=== PATIENT | female | born 1960 | race Two or more races ===

== ENCOUNTER 2020-08-27 07:34 | Day surgery (SDC) | payer MEDICARE ==
[2020-08-22 14:52] LABS: Basophils # (auto) 0 10 ^3/uL (0-0.2); Basophils % (auto) 0.6 % (0.0-2.0); Eosinophils # (auto) 0.1 10 ^3/uL (0-0.8); Eosinophils % (auto) 1.1 % (0.0-7.0); Hematocrit 39.9 % (36.0-46.0); Hemoglobin 13.1 g/dL (12.2-16.2); Lymphocytes % (auto) 53.1 % (10.0-50.0); Mean Corpuscular Hemoglobin 29.1 pg (28.0-32.0); Mean Corpuscular Hgb Conc. 32.9 g/dL (32.0-36.0); Mean Corpuscular Volume 88.3 fL (80.0-100.0); Monocytes # (auto) 0.3 10 ^3/uL (0-1.3); Monocytes % (auto) 4.8 % (0.0-12.0); Neutrophils # (auto) 2.3 10 ^3/uL (1.6-8.6); Neutrophils % (auto) 40.4 % (37.0-80.0); Nucleated Red Blood Cells % 0.2 %; Platelet Count (auto) 237 10^3/uL (140-450); Red Blood Cells 4.52 10^6/uL (4.0-5.20); Red Cell Distribution Width 14.9 % (11.8-14.3); White Blood Cell 5.6 10^3/uL (4.4-10.8)
[2020-08-22 15:21] LABS: Urine Bacteria NONE SEEN /hpf (None Seen); Urine Blood Negative /uL (Negative); Urine Mucus FEW (None Seen); Urine WBC 2 /hpf (0 - 5)
[2020-08-22 15:52] LABS: INR 0.95 (0.9-1.15); Partial Thromboplastin Time 24.7 sec (23.0-31.2)
[2020-08-22 16:03] LABS: BUN/Creatinine Ratio 22.4; Calcium 9.3 mg/dL (8.5-10.1); Potassium 4.3 mmol/L (3.5-5.1)
[2020-08-22 16:05] LABS: Bilirubin, Total 0.3 mg/dL (0.2-1.0); Total Protein 7.7 g/dL (6.4-8.2)
[~2020-08-27] VITALS: Ht 10.2 cm; Wt 103.4 kg
[~2020-08-27 07:34] MED LIST: ALPR1TAB7 PO; ATOR40TA52 PO; BUPR1TAB11 PO; HYDR-3682 PO; LEVO150T10 PO; TRAZ-181 PO; VENL-194 PO; [UNRECOGNIZED DRUG - CODE] PO
[2020-08-27] MEDS ORDERED: ceFAZolin 1GM/50ML 100 ML IV ONE (08:02)
[2020-08-27] MEDS ORDERED: LIDOCAINE 1% HCL (LOCAL ANESTH.) INJ 20ML MDV ONE (08:44)
[2020-08-27] MEDS ORDERED: fentaNYL CITRATE 100 MCG/2 ML VL IV ONE (09:27)
[2020-08-27] MEDS ORDERED: ONDANSETRON HCL 4 MG/2 ML VIAL IV ONE (09:27)
[2020-08-27] MEDS ORDERED: MIDAZOLAM HCL 1MG/1ML-2 ML VIAL IV ONE (09:27)
[2020-08-27] MEDS: BUPIVACAINE 0.5% MPF INJ 30ML SDV IJ ONE ×2 (09:47→12:10)
[2020-08-27] MEDS ORDERED: PROPOFOL 10 MG/ML 20 ML IV ONE ×3 (10:10→11:27)
[2020-08-27 13:30] VITALS: BP 114/67
== END 2020-08-27 14:00 | disposition home or self-care (01) ==
LOC: SUR 07:34
PROVIDERS: ATTEND Podiatrist
DX: M79.671 Pain in right foot (principal); M13.871 Other specified arthritis, right ankle and foot; F32.9 Major depressive disorder, single episode, unspecified; E03.9 Hypothyroidism, unspecified; F41.9 Anxiety disorder, unspecified; E66.01 Morbid (severe) obesity due to excess calories; Z20.822 Contact with and (suspected) exposure to COVID-19; Z98.890 Other specified postprocedural states; Z79.899 Other long term (current) drug therapy
CPT/HCPCS: 28730; 36415; 73620; 76001; 80053; 81001; 85025; 85610; 85730; C1713; C1769; J0690; J2001; J2250; J2405; J2704; J3010; J3490; U0003

== ENCOUNTER 2021-04-24 05:48 | Inpatient (IN) | payer MEDICARE, MEDICAID ==
[2021-04-22 14:57] LABS: Basophils # (auto) 0 10 ^3/uL (0-0.2); Basophils % (auto) 0.6 % (0.0-2.0); Eosinophils # (auto) 0.1 10 ^3/uL (0-0.8); Eosinophils % (auto) 1.1 % (0.0-7.0); Hematocrit 38.8 % (36.0-46.0); Hemoglobin 12.3 g/dL (12.2-16.2); Lymphocytes # (auto) 2.7 10 ^3/uL (0.4-5.4); Lymphocytes % (auto) 50.9 % (10.0-50.0); Mean Corpuscular Hemoglobin 27.9 pg (28.0-32.0); Mean Corpuscular Hgb Conc. 31.7 g/dL (32.0-36.0); Mean Corpuscular Volume 87.9 fL (80.0-100.0); Monocytes # (auto) 0.3 10 ^3/uL (0-1.3); Neutrophils # (auto) 2.3 10 ^3/uL (1.6-8.6); Neutrophils % (auto) 42.4 % (37.0-80.0); Red Blood Cells 4.42 10^6/uL (4.0-5.20); Red Cell Distribution Width 13.9 % (11.8-14.3); White Blood Cell 5.3 10^3/uL (4.4-10.8)
[2021-04-22 15:24] LABS: Urine Bacteria NONE SEEN /hpf (None Seen); Urine Blood Negative /uL (Negative); Urine Mucus FEW (None Seen); Urine Specific Gravity 1.019 (1.001-1.035); Urine WBC <1 /hpf (0 - 5)
[2021-04-22 15:46] LABS: Albumin 3.5 g/dL (3.4-5.0); Calcium 8.8 mg/dL (8.5-10.1); Potassium 4.4 mmol/L (3.5-5.1)
[2021-04-22 15:51] LABS: BUN/Creatinine Ratio 17.1; Bilirubin, Total 0.2 mg/dL (0.2-1.0); Total Protein 6.7 g/dL (6.4-8.2)
[2021-04-24] VITALS (10 sets, daily range): BP systolic 102–165; BP diastolic 49–98
[~2021-04-24] VITALS: Ht 162.6 cm; Wt 113.0 kg
[~2021-04-24 05:48] MED LIST changes: +ACET-1079 PO
[2021-04-24] MEDS ORDERED: VANCOMYCIN HCL 1000 MG VL ONE (07:07)
[2021-04-24] MEDS ORDERED: ceFAZolin 1GM/50ML 100 ML IV ONE (07:07)
[2021-04-24] MEDS ORDERED: MORPHINE SULF PF 2 MG/2 ML SYRG ONE ×3 (07:10→08:26)
[2021-04-24] MEDS ORDERED: CELECOXIB 100 MG CAP ONE (07:10)
[2021-04-24] MEDS ORDERED: ACETAMINOPHEN IV 100 ML IV ONE (07:10)
[2021-04-24] MEDS ORDERED: KETOROLAC TROMETH 30 MG/ML 1ML VIAL ONE (07:11)
[2021-04-24] MEDS ORDERED: PREGABALIN CAPSULE 75 MG CAP ONE (07:13)
[2021-04-24] MEDS ORDERED: fentaNYL CITRATE 100 MCG/2 ML VL ONE (07:18)
[2021-04-24] MEDS ORDERED: MIDAZOLAM HCL 2MG/2ML 2ml VIAL (1mg/ml) ONE (07:18)
[2021-04-24] MEDS ORDERED: ONDANSETRON HCL 4 MG/2 ML VIAL ONE (07:19)
[2021-04-24] MEDS ORDERED: PROPOFOL 10 MG/ML 20 ML IV ONE (07:19)
[2021-04-24] MEDS ORDERED: EPINEPHrine HCL 1 MG/1 ML AMP ONE (07:19)
[2021-04-24] MEDS ORDERED: BUPIVACAINE/DEXTROSE MPF 0.75% 2 ML AMP IT ONE (07:19)
[2021-04-24] MEDS ORDERED: DexAMETHasone SOD PHOS 10MG/1ML VIAL INJ ONE (07:19)
[2021-04-24] MEDS ORDERED: BUPIVACAINE 0.25% INJ 50ML VIAL ONE (07:23)
[2021-04-24] MEDS ORDERED: HYDROmorphone HCL 2 MG/ML VL IV PRN ×2 (07:45→09:30)
[2021-04-24] MEDS ORDERED: METOCLOPRAMIDE HCL 5MG/ml INJ 2ml VIAL IV PRN (07:45)
[2021-04-24] MEDS ORDERED: MIDAZOLAM HCL 2MG/2ML 2ml VIAL (1mg/ml) IV PRN (07:45)
[2021-04-24] MEDS ORDERED: CELECOXIB 100 MG CAP PO ONE (09:30)
[2021-04-24] MEDS ORDERED: MORPHINE SULFATE INJECTION 2 MG/ML SYRG IV PRN (09:30)
[2021-04-24] MEDS ORDERED: NITROGLYCERIN 0.4 MG SL TAB SL PRN (09:30)
[2021-04-24] MEDS ORDERED: ONDANSETRON HCL 4 MG/2 ML VIAL IV PRN (09:30)
[2021-04-24] MEDS ORDERED: ACETAMINOPHEN 325 MG TAB PO PRN (09:30)
[2021-04-24] MEDS ORDERED: HYDROcodone-ACET 5/325MG TAB PO PRN (09:30)
[2021-04-24] MEDS ORDERED: PREGABALIN CAPSULE 75 MG CAP PO ONE (09:30)
[2021-04-24] MEDS ORDERED: BISACODYL 5 MG EC TAB PO PRN (09:30)
[2021-04-24] MEDS ORDERED: ACETAMINOPHEN IV 1000 MG/100ML (10MG/ML) IV ONE (09:45)
[2021-04-24] MEDS: LACTATED RINGER'S 1,000 ML IV SCH ×2 (09:56→20:41)
[2021-04-24] MEDS ORDERED: ENOXAPARIN SOD 40 MG/0.4 ML SYRINGE SC SCH (10:00)
[2021-04-24] MEDS ORDERED: LEVOTHYROXINE SODIUM 100 MCG TAB PO ONE (10:30)
[2021-04-24] MEDS: VENLAFAXINE HCL 37.5mg XR cap PO SCH (11:00)
[2021-04-24] MEDS: buPROPion HCL 75 MG TAB PO SCH ×2 (11:00→22:54)
[2021-04-24] MEDS: oxyCODONE ER 10 MG TAB PO SCH ×2 (11:00→22:52)
[2021-04-24] MEDS: DOCUSATE SOD 100 MG CAP PO SCH ×2 (11:00→22:51)
[2021-04-24] MEDS: ATORVASTATIN 20 MG TAB PO SCH (11:00)
[2021-04-24] MEDS: ALPRAZolam 0.5 MG TAB PO SCH (11:00)
[2021-04-24] MEDS: KETOROLAC TROMETH 30 MG/ML 1ML VIAL IV SCH ×2 (12:03→18:05)
[2021-04-24] MEDS: ceFAZolin 2 GM in D5W 5% 100 ML IV SCH ×2 (15:50→22:55)
[2021-04-24] MEDS: hydrOXYzine 25 MG TAB or CAP PO SCH (22:52)
[2021-04-25] VITALS (20 sets, daily range): BP systolic 94–127; BP diastolic 48–95
[2021-04-25] MEDS: KETOROLAC TROMETH 30 MG/ML 1ML VIAL IV SCH (00:38)
[2021-04-25] MEDS: ALPRAZolam 0.5 MG TAB PO SCH ×3 (00:38→21:24)
[2021-04-25] MEDS: traZODone HCL 50 MG TAB PO SCH ×2 (00:38→21:23)
[2021-04-25] MEDS: LACTATED RINGER'S 1,000 ML IV SCH ×2 (05:54→14:55)
[2021-04-25] MEDS: HYDROcodone-ACET 5/325MG TAB PO PRN ×2 (05:54→14:56)
[2021-04-25] MEDS: ceFAZolin 2 GM in D5W 5% 100 ML IV SCH (05:54)
[2021-04-25] MEDS ORDERED: LEVOTHYROXINE SODIUM 100 MCG TAB PO SCH (07:00)
[2021-04-25 09:49] LABS: Hematocrit 32.7 % (36.0-46.0); Hemoglobin 10.7 g/dL (12.2-16.2)
[2021-04-25] MEDS: VENLAFAXINE HCL 37.5mg XR cap PO SCH (09:50)
[2021-04-25] MEDS: ATORVASTATIN 20 MG TAB PO SCH (09:50)
[2021-04-25] MEDS: DOCUSATE SOD 100 MG CAP PO SCH ×2 (09:50→21:23)
[2021-04-25] MEDS: buPROPion HCL 75 MG TAB PO SCH ×2 (09:51→21:27)
[2021-04-25] MEDS: oxyCODONE ER 10 MG TAB PO SCH ×2 (09:51→21:24)
[2021-04-25] MEDS: PANTOPRAZOLE 40 MG TAB PO SCH (09:51)
[2021-04-25] MEDS: ENOXAPARIN SOD 40 MG/0.4 ML SYRINGE SC SCH (09:52)
[2021-04-25 11:37] LABS: Potassium 4.5 mmol/L (3.5-5.1)
[2021-04-25 11:44] LABS: Albumin 2.9 g/dL (3.4-5.0); Calcium 8.3 mg/dL (8.5-10.1)
[2021-04-25 11:46] LABS: Bilirubin, Total 0.3 mg/dL (0.2-1.0); Total Protein 5.9 g/dL (6.4-8.2)
[2021-04-25] MEDS: hydrOXYzine 25 MG TAB or CAP PO SCH (21:24)
[2021-04-26] MEDS: LACTATED RINGER'S 1,000 ML IV SCH ×3 (02:45→21:35)
[2021-04-26] MEDS: HYDROmorphone HCL 2 MG/ML VL IV PRN ×4 (02:50→16:31)
[2021-04-26 05:00] VITALS: BP 100/50
[2021-04-26] MEDS: LEVOTHYROXINE SODIUM 100 MCG TAB PO SCH (07:00)
[2021-04-26] MEDS: LEVOTHYROXINE SODIUM 50 MCG TAB PO SCH (07:00)
[2021-04-26 07:48] LABS: Basophils # (auto) 0 10 ^3/uL (0-0.2); Basophils % (auto) 0.7 % (0.0-2.0); Eosinophils # (auto) 0.1 10 ^3/uL (0-0.8); Eosinophils % (auto) 0.9 % (0.0-7.0); Hematocrit 30.4 % (36.0-46.0); Lymphocytes # (auto) 2.2 10 ^3/uL (0.4-5.4); Mean Corpuscular Volume 87.8 fL (80.0-100.0); Monocytes # (auto) 0.5 10 ^3/uL (0-1.3); Monocytes % (auto) 7.7 % (0.0-12.0); Neutrophils # (auto) 3.2 10 ^3/uL (1.6-8.6); Neutrophils % (auto) 53.7 % (37.0-80.0); Nucleated Red Blood Cells % 0.1 %; Red Blood Cells 3.46 10^6/uL (4.0-5.20); Red Cell Distribution Width 13.9 % (11.8-14.3)
[2021-04-26 07:55] LABS: Calcium 7.9 mg/dL (8.5-10.1); Potassium 4.3 mmol/L (3.5-5.1)
[2021-04-26 07:58] LABS: BUN/Creatinine Ratio 21.1
[2021-04-26 08:30] VITALS: BP 126/74
[2021-04-26] MEDS: ATORVASTATIN 20 MG TAB PO SCH (09:11)
[2021-04-26] MEDS: VENLAFAXINE HCL 37.5mg XR cap PO SCH (09:11)
[2021-04-26] MEDS: DOCUSATE SOD 100 MG CAP PO SCH ×2 (09:11→21:33)
[2021-04-26] MEDS: PANTOPRAZOLE 40 MG TAB PO SCH (09:12)
[2021-04-26] MEDS: buPROPion HCL 75 MG TAB PO SCH ×2 (09:12→21:34)
[2021-04-26] MEDS: oxyCODONE ER 10 MG TAB PO SCH ×2 (09:12→21:34)
[2021-04-26] MEDS: ALPRAZolam 0.5 MG TAB PO SCH ×2 (09:12→21:35)
[2021-04-26] MEDS: ENOXAPARIN SOD 40 MG/0.4 ML SYRINGE SC SCH (09:13)
[2021-04-26 11:20] VITALS: BP 113/62
[2021-04-26 15:55] VITALS: BP 123/60
[2021-04-26] MEDS: hydrOXYzine 25 MG TAB or CAP PO SCH (21:35)
[2021-04-26] MEDS: traZODone HCL 50 MG TAB PO SCH (21:35)
[2021-04-26 22:00] VITALS: BP 144/84
[2021-04-27 05:00] VITALS: BP 124/77
[2021-04-27] MEDS: LEVOTHYROXINE SODIUM 100 MCG TAB PO SCH (06:31)
[2021-04-27] MEDS: LEVOTHYROXINE SODIUM 50 MCG TAB PO SCH (06:31)
[2021-04-27] MEDS: LACTATED RINGER'S 1,000 ML IV SCH ×3 (07:30→20:10)
[2021-04-27 08:49] LABS: Hematocrit 28.1 % (36.0-46.0); Hemoglobin 9.1 g/dL (12.2-16.2)
[2021-04-27 08:53] VITALS: BP 117/76
[2021-04-27] MEDS: DOCUSATE SOD 100 MG CAP PO SCH ×2 (09:26→21:54)
[2021-04-27] MEDS: PANTOPRAZOLE 40 MG TAB PO SCH (09:27)
[2021-04-27] MEDS: ATORVASTATIN 20 MG TAB PO SCH (09:27)
[2021-04-27] MEDS: oxyCODONE ER 10 MG TAB PO SCH ×2 (09:27→21:55)
[2021-04-27] MEDS: VENLAFAXINE HCL 37.5mg XR cap PO SCH (09:27)
[2021-04-27] MEDS: ENOXAPARIN SOD 40 MG/0.4 ML SYRINGE SC SCH (09:28)
[2021-04-27] MEDS: buPROPion HCL 75 MG TAB PO SCH ×2 (09:28→21:55)
[2021-04-27] MEDS: ALPRAZolam 0.5 MG TAB PO SCH ×2 (09:28→21:54)
[2021-04-27 13:00] VITALS: BP 111/72
[2021-04-27] MEDS: HYDROcodone-ACET 5/325MG TAB PO PRN ×2 (14:00→20:13)
[2021-04-27 17:00] VITALS: BP 105/59
[2021-04-27 21:14] VITALS: BP 124/72
[2021-04-27] MEDS: hydrOXYzine 25 MG TAB or CAP PO SCH (21:55)
[2021-04-27] MEDS: traZODone HCL 50 MG TAB PO SCH (21:55)
[2021-04-28 05:00] VITALS: BP 119/67
[2021-04-28] MEDS: LEVOTHYROXINE SODIUM 100 MCG TAB PO SCH (06:02)
[2021-04-28] MEDS: LEVOTHYROXINE SODIUM 50 MCG TAB PO SCH (06:03)
[2021-04-28 08:45] VITALS: BP 102/55
[2021-04-28] MEDS: ALPRAZolam 0.5 MG TAB PO SCH (09:44)
[2021-04-28] MEDS: VENLAFAXINE HCL 37.5mg XR cap PO SCH (09:44)
[2021-04-28] MEDS: PANTOPRAZOLE 40 MG TAB PO SCH (09:44)
[2021-04-28] MEDS: ATORVASTATIN 20 MG TAB PO SCH (09:44)
[2021-04-28] MEDS: DOCUSATE SOD 100 MG CAP PO SCH (09:45)
[2021-04-28] MEDS: oxyCODONE ER 10 MG TAB PO SCH (09:45)
[2021-04-28] MEDS: ENOXAPARIN SOD 40 MG/0.4 ML SYRINGE SC SCH (09:45)
[2021-04-28] MEDS: buPROPion HCL 75 MG TAB PO SCH (09:45)
[2021-04-28 12:35] VITALS: BP 113/66
[2021-04-28] MEDS: LACTATED RINGER'S 1,000 ML IV SCH (13:08)
== END 2021-04-28 15:15 | disposition home health service (06) | DRG 470 ==
LOC: SUR 05:48 → TELE 09:27 → TELE-WESTW 14:30
PROVIDERS: ADMIT Orthopaedic Surgery Adult Reconstructive Orthopaedic Surgery; ATTEND Internal Medicine
PROC: 8E0YXBZ Computer Assisted Procedure of Lower Extremity (ICD-10-PCS; 2021-04-24)
PROC: 0SRD0J9 Replacement of Left Knee Joint with Synthetic Substitute, Cemented, Open Approach (ICD-10-PCS; principal; 2021-04-24 07:43)
DX: M17.12 Unilateral primary osteoarthritis, left knee (principal); Z68.41 Body mass index [BMI] 40.0-44.9, adult; E78.5 Hyperlipidemia, unspecified; E66.01 Morbid (severe) obesity due to excess calories; E03.9 Hypothyroidism, unspecified; F32.A Depression, unspecified; F41.9 Anxiety disorder, unspecified; R33.9 Retention of urine, unspecified; Z96.651 Presence of right artificial knee joint; Z90.10 Acquired absence of unspecified breast and nipple; Z90.49 Acquired absence of other specified parts of digestive tract; Z20.822 Contact with and (suspected) exposure to COVID-19
CPT/HCPCS: 36415; 73562; 80048; 80053; 81001; 84443; 85014; 85018; 85025; 86850; 86900; 86901; 97110; 97116; 97163; 97530; G0378; J0131; J0171; J0690; J1100; J1885; J2250; J2405; J2704; J3490; J7060

== ENCOUNTER → 2022-04-12 | Outpatient (CLI) | payer MEDICARE, MEDICAID | END | disposition home or self-care (01) | LOC: LAB 12:28 | PROVIDERS: ATTEND Orthopaedic Surgery Adult Reconstructive Orthopaedic Surgery | DX: Z96.652 Presence of left artificial knee joint (principal) | CPT/HCPCS: 36415; 85048; 85652; 86141 ==

== ENCOUNTER 2022-08-10 13:48 | Inpatient (IN) | payer MEDICARE, MEDICAID ==
[~2022-08-10] VITALS: Ht 160 cm; Wt 97.0 kg
[2022-08-10 14:20] LABS: Basophils # (auto) 0 10 ^3/uL (0-0.2); Basophils % (auto) 0.5 % (0.0-2.0); Eosinophils # (auto) 0.1 10 ^3/uL (0-0.8); Eosinophils % (auto) 0.9 % (0.0-7.0); Hematocrit 40.1 % (36.0-46.0); Hemoglobin 13.7 g/dL (12.2-16.2); Lymphocytes # (auto) 2.5 10 ^3/uL (0.4-5.4); Lymphocytes % (auto) 42.8 % (10.0-50.0); Mean Corpuscular Hemoglobin 29.7 pg (28.0-32.0); Mean Corpuscular Hgb Conc. 34.1 g/dL (32.0-36.0); Mean Corpuscular Volume 87.1 fL (80.0-100.0); Monocytes # (auto) 0.2 10 ^3/uL (0-1.3); Monocytes % (auto) 3.5 % (0.0-12.0); Neutrophils # (auto) 3.1 10 ^3/uL (1.6-8.6); Neutrophils % (auto) 52.3 % (37.0-80.0); Nucleated Red Blood Cells % 0.1 %; Red Blood Cells 4.61 10^6/uL (4.0-5.20); Red Cell Distribution Width 15.5 % (11.8-14.3); White Blood Cell 5.9 10^3/uL (4.4-10.8)
[2022-08-10 14:50] LABS: INR 1.04 (0.9-1.15); Partial Thromboplastin Time 28.1 sec (24.6-33.4)
[2022-08-10 14:52] LABS: Albumin 4.4 g/dL (3.4-5.0); Calcium 9.9 mg/dL (8.5-10.1); Magnesium 2.6 mg/dL (1.6-2.6); Potassium 5.1 mmol/L (3.5-5.1)
[2022-08-10 14:56] LABS: BUN/Creatinine Ratio 8.6 (10.0-20.0); Bilirubin, Total 0.5 mg/dL (0.2-1.0); Total Protein 7.9 g/dL (6.4-8.2)
[2022-08-10] MEDS ORDERED: NITROGLYCERIN 0.4 MG SL TAB SL PRN (18:15)
[2022-08-10] MEDS ORDERED: MORPHINE SULFATE INJ 2 MG/ml SYRG IV PRN (18:15)
[2022-08-10] MEDS ORDERED: PANTOPRAZOLE 40 MG/10 ML VIAL INJ IV ONE (18:15)
[2022-08-10] MEDS ORDERED: ASPirin 325 MG TAB PO ONE (18:30)
[2022-08-10 18:49] LABS: Cholesterol 171 mg/dL (< 200); HDL Cholesterol 73 mg/dL (40-59); LDL Cholesterol 92 mg/dL (< 100); Triglycerides 99 mg/dL (< 150)
[2022-08-10] MEDS: SODIUM CHLORIDE 0.9% 1,000 ML IV SCH ×2 (20:29→22:57)
[2022-08-10] MEDS ORDERED: LORazepam 2MG/ML-1ML VIAL IV PRN (21:00)
[2022-08-10] MEDS ORDERED: LORazepam 0.5 MG TAB PO PRN (21:00)
[2022-08-10] MEDS: PROPRANOLOL HCL 20 MG TAB PO SCH (22:00)
[2022-08-10] MEDS: ATORVASTATIN 20 MG TAB PO SCH (22:58)
[2022-08-11] MEDS: ACETAMINOPHEN 325 MG TAB PO PRN (00:33)
[2022-08-11 06:31] LABS: Basophils # (auto) 0 10 ^3/uL (0-0.2); Basophils % (auto) 0.6 % (0.0-2.0); Eosinophils # (auto) 0.1 10 ^3/uL (0-0.8); Eosinophils % (auto) 1.3 % (0.0-7.0); Hematocrit 35.9 % (36.0-46.0); Hemoglobin 12.1 g/dL (12.2-16.2); Lymphocytes # (auto) 3.4 10 ^3/uL (0.4-5.4); Lymphocytes % (auto) 51.2 % (10.0-50.0); Mean Corpuscular Hemoglobin 29.4 pg (28.0-32.0); Mean Corpuscular Hgb Conc. 33.8 g/dL (32.0-36.0); Monocytes # (auto) 0.3 10 ^3/uL (0-1.3); Monocytes % (auto) 5.1 % (0.0-12.0); Neutrophils # (auto) 2.8 10 ^3/uL (1.6-8.6); Neutrophils % (auto) 41.8 % (37.0-80.0); Nucleated Red Blood Cells % 0.1 %; Red Blood Cells 4.13 10^6/uL (4.0-5.20); Red Cell Distribution Width 15.1 % (11.8-14.3); White Blood Cell 6.6 10^3/uL (4.4-10.8)
[2022-08-11 06:41] LABS: Potassium 3.9 mmol/L (3.5-5.1)
[2022-08-11 06:50] LABS: Albumin 3.7 g/dL (3.4-5.0); BUN/Creatinine Ratio 11.9 (10.0-20.0); Bilirubin, Total 0.3 mg/dL (0.2-1.0); Calcium 8.5 mg/dL (8.5-10.1); Total Protein 6.5 g/dL (6.4-8.2)
[2022-08-11] MEDS: PANTOPRAZOLE 40 MG/10 ML VIAL INJ IV SCH (15:22)
[2022-08-11] MEDS: ASPirin 81 mg TAB PO SCH (15:23)
[2022-08-11] MEDS: VENLAFAXINE HCL 37.5mg XR cap PO SCH (15:24)
[2022-08-11] MEDS: PROPRANOLOL HCL 20 MG TAB PO SCH ×2 (15:25→22:42)
[2022-08-11] MEDS: LEVOTHYROXINE SODIUM 100 MCG TAB PO SCH (15:25)
[2022-08-11] MEDS: BUPROPION HCL 300 MG PO SCH (15:29)
[2022-08-11 22:00] VITALS: BP 101/56
[2022-08-11 22:01] VITALS: BP 101/56
[2022-08-11] MEDS: ATORVASTATIN 20 MG TAB PO SCH (22:43)
[2022-08-11 23:42] VITALS: BP 106/55
[2022-08-12] MEDS: SODIUM CHLORIDE 0.9% 1,000 ML IV SCH ×2 (02:14→10:54)
[2022-08-12] MEDS: ACETAMINOPHEN 325 MG TAB PO PRN ×2 (02:21→08:21)
[2022-08-12 05:00] VITALS: BP 100/66
[2022-08-12] MEDS: LEVOTHYROXINE SODIUM 100 MCG TAB PO SCH (06:08)
[2022-08-12 09:00] VITALS: BP 105/57
[2022-08-12] MEDS: ASPirin 81 mg TAB PO SCH (09:56)
[2022-08-12] MEDS: PANTOPRAZOLE 40 MG/10 ML VIAL INJ IV SCH (09:56)
[2022-08-12] MEDS: VENLAFAXINE HCL 37.5mg XR cap PO SCH (09:57)
[2022-08-12] MEDS: PROPRANOLOL HCL 20 MG TAB PO SCH (09:59)
[2022-08-12] MEDS: BUPROPION HCL 300 MG PO SCH (09:59)
[2022-08-12] MEDS ORDERED: ASPI1TAB91 PO (10:04)
[2022-08-12 10:28] VITALS: BP 105/57
== END 2022-08-12 13:00 | disposition home or self-care (01) | DRG 92 ==
LOC: ER 13:48 → TELE 18:20 → TELE-CENTR 08-11 21:00
PROVIDERS: ADMIT Nurse Practitioner Family; ATTEND Internal Medicine
DX: R47.81 Slurred speech (principal); I47.1 Supraventricular tachycardia; N17.9 Acute kidney failure, unspecified; F41.9 Anxiety disorder, unspecified; E03.9 Hypothyroidism, unspecified; E66.01 Morbid (severe) obesity due to excess calories; H57.02 Anisocoria; I48.91 Unspecified atrial fibrillation; R56.9 Unspecified convulsions; Z96.653 Presence of artificial knee joint, bilateral; Z20.822 Contact with and (suspected) exposure to COVID-19; Z68.37 Body mass index [BMI] 37.0-37.9, adult; Z85.3 Personal history of malignant neoplasm of breast; Z79.899 Other long term (current) drug therapy; Z90.710 Acquired absence of both cervix and uterus
CPT/HCPCS: 36415; 70450; 70547; 70551; 71045; 71250; 80053; 80061; 83036; 83735; 83880; 84443; 84484; 85025; 85610; 85652; 85730; 87426; 93005; 93306; 93886; 97110; 97116; 97163; 97530; C9113; G0378

== ENCOUNTER 2023-10-12 07:42 | Day surgery (SDC) | payer MEDICARE, MEDICAID ==
[2023-08-31 14:03] LABS: INR 1.02 (0.9-1.15); Partial Thromboplastin Time 27.7 SEC (24.5-34.5); Prothrombin Time 10.7 sec (9.3-11.8)
[2023-08-31 14:05] LABS: Basophils # (auto) 0 10 ^3/uL (0-0.2); Basophils % (auto) 0.6 % (0.0-2.0); Eosinophils # (auto) 0.1 10 ^3/uL (0-0.8); Hematocrit 41.9 % (36.0-46.0); Hemoglobin 13.7 g/dL (12.2-16.2); Lymphocytes # (auto) 2.7 10 ^3/uL (0.4-5.4); Lymphocytes % (auto) 40.3 % (10.0-50.0); Mean Corpuscular Hemoglobin 29.4 pg (28.0-32.0); Mean Corpuscular Hgb Conc. 32.8 g/dL (32.0-36.0); Mean Corpuscular Volume 89.7 fL (80.0-100.0); Monocytes # (auto) 0.3 10 ^3/uL (0-1.3); Neutrophils # (auto) 3.6 10 ^3/uL (1.6-8.6); Neutrophils % (auto) 54.1 % (37.0-80.0); Platelet Count (auto) 208 10^3/uL (140-450); Red Blood Cells 4.67 10^6/uL (4.0-5.20); Red Cell Distribution Width 14.5 % (11.8-14.3); White Blood Cell 6.7 10^3/uL (4.4-10.8)
[2023-08-31 14:18] LABS: Urine Bacteria FEW /hpf (None Seen); Urine Blood Negative /uL (Negative); Urine Clarity Turbid (Clear); Urine Color Yellow (Yellow); Urine Mucus FEW (None Seen); Urine Protein, UAD 1+ (Negative); Urine Specific Gravity 1.026 (1.001-1.035); Urine Urobilinogen Normal (Negative); Urine WBC 6 /hpf (0 - 5)
[2023-08-31 14:38] LABS: Alanine Aminotransferase 37 U/L (7-40); Albumin 4.7 g/dL (3.2-4.8); Alkaline Phosphatase 111 U/L (46-116); Anion Gap 4 (5-15); Aspartate Aminotransferase 33 U/L (13-40); BUN/Creatinine Ratio 9.8 (10.0-20.0); Blood Urea Nitrogen 14 mg/dL (9-23); Calcium 10.2 mg/dL (8.5-10.1); Carbon Dioxide 31 mmol/L (20-30); Chloride 107 mmol/L (98-107); Glucose 102 mg/dL (74-106); Potassium 4.6 mmol/L (3.5-5.1); Sodium 142 mmol/L (136-145); Total Protein 7.6 g/dL (5.7-8.2)
[2023-08-31 14:39] LABS: Bilirubin, Total 0.5 mg/dL (0.2-1.0)
[2023-10-06 10:50] LABS: Basophils # (auto) 0 10 ^3/uL (0-0.2); Basophils % (auto) 0.6 % (0.0-2.0); Eosinophils # (auto) 0.1 10 ^3/uL (0-0.8); Eosinophils % (auto) 1.2 % (0.0-7.0); Hematocrit 37.8 % (36.0-46.0); Hemoglobin 12.4 g/dL (12.2-16.2); Lymphocytes # (auto) 1.9 10 ^3/uL (0.4-5.4); Lymphocytes % (auto) 35.1 % (10.0-50.0); Mean Corpuscular Hemoglobin 29.4 pg (28.0-32.0); Mean Corpuscular Hgb Conc. 32.7 g/dL (32.0-36.0); Monocytes # (auto) 0.3 10 ^3/uL (0-1.3); Monocytes % (auto) 5.9 % (0.0-12.0); Neutrophils # (auto) 3.1 10 ^3/uL (1.6-8.6); Neutrophils % (auto) 57.2 % (37.0-80.0); Platelet Count (auto) 198 10^3/uL (140-450); White Blood Cell 5.5 10^3/uL (4.4-10.8)
[2023-10-06 11:04] LABS: INR 0.96 (0.9-1.15); Partial Thromboplastin Time 24.7 SEC (24.5-34.5); Prothrombin Time 10.2 sec (9.3-11.8)
[2023-10-06 11:29] LABS: Alanine Aminotransferase 36 U/L (7-40); Alkaline Phosphatase 106 U/L (46-116); Calcium 9.8 mg/dL (8.5-10.1)
[2023-10-06 11:30] LABS: Albumin 4.2 g/dL (3.2-4.8); Anion Gap 4 (5-15); Aspartate Aminotransferase 21 U/L (13-40); BUN/Creatinine Ratio 11.6 (10.0-20.0); Bilirubin, Total 0.3 mg/dL (0.2-1.0); Blood Urea Nitrogen 15 mg/dL (9-23); Carbon Dioxide 30 mmol/L (20-30); Chloride 109 mmol/L (98-107); Glucose 98 mg/dL (74-106); Potassium 4.4 mmol/L (3.5-5.1); Sodium 143 mmol/L (136-145); Total Protein 6.8 g/dL (5.7-8.2)
[2023-10-06 13:17] LABS: Urine Bacteria FEW /hpf (None Seen); Urine Blood Negative /uL (Negative); Urine Clarity Clear (Clear); Urine Color Yellow (Yellow); Urine Hyaline Cast MOD /lpf (0 - 2); Urine Mucus FEW (None Seen); Urine Protein, UAD TRACE (Negative); Urine Urobilinogen Normal (Negative); Urine WBC 2 /hpf (0 - 5); Urine pH 5.5 (5.0-9.0)
[~2023-10-12] VITALS: Ht 160 cm; Wt 93.0 kg
[~2023-10-12 07:42] MED LIST changes: +BUPR-133 PO; -BUPR1TAB11 PO; -HYDR-3682 PO; -LEVO150T10 PO; +LEVO200C3 PO; +PROP60CA34 PO; +VENL-192 PO; -VENL-194 PO; -[UNRECOGNIZED DRUG - CODE] PO
[2023-10-12] MEDS ORDERED: ceFAZolin 2 GM/D5W50ml 50 ML IV ONE (07:49)
[2023-10-12] MEDS ORDERED: MORPHINE SULFATE INJ 2 MG/ml SYRG IV PRN (08:15)
[2023-10-12] MEDS ORDERED: fentaNYL CITRATE 100 MCG/2 ML VL IV PRN (08:15)
[2023-10-12] MEDS ORDERED: HYDROmorphone HCL 2 MG/ML VL/or syr IV PRN ×2 (08:15)
[2023-10-12] MEDS ORDERED: METOCLOPRAMIDE HCL 5MG/ml INJ 2ml VIAL IV ONE (08:15)
[2023-10-12] MEDS ORDERED: KETAMINE 50mg/ML 1ml syringe ONE (08:22)
[2023-10-12] MEDS ORDERED: SODIUM CHLORIDE LOCK 10 ML ONE (08:22)
[2023-10-12] MEDS ORDERED: MIDAZOLAM HCL 2MG/2ML 2ml VIAL (1mg/ml) ONE (08:22)
[2023-10-12] MEDS ORDERED: PROPOFOL 10 MG/ML 20 ML IV ONE (08:22)
[2023-10-12] MEDS ORDERED: fentaNYL CITRATE 100 MCG/2 ML VL ONE (08:22)
[2023-10-12] MEDS ORDERED: ONDANSETRON HCL 4 MG/2 ML VIAL ONE (08:22)
[2023-10-12] MEDS ORDERED: ceFAZolin 1GM VL ONE (08:38)
[2023-10-12] MEDS ORDERED: BUPIVACAINE 0.5% P/F INJ 10 ML VIAL ONE ×2 (08:39→10:17)
[2023-10-12] MEDS ORDERED: LIDOCAINE 1% HCL (LOCAL ANESTH.) INJ 20ML MDV ONE (10:17)
[2023-10-12 13:14] VITALS: TEMP 97.5; O2SAT 99
[2023-10-12 14:29] VITALS: BP 117/63; PULSE 72; RESP 15; O2SAT 95
== END 2023-10-12 15:00 | disposition home or self-care (01) ==
LOC: SUR 07:42
PROVIDERS: ATTEND Podiatrist
DX: M20.11 Hallux valgus (acquired), right foot (principal); F41.8 Other specified anxiety disorders; E03.9 Hypothyroidism, unspecified; N18.30 Chronic kidney disease, stage 3 unspecified; E78.5 Hyperlipidemia, unspecified; E66.9 Obesity, unspecified; Z68.36 Body mass index [BMI] 36.0-36.9, adult; Z79.890 Hormone replacement therapy; Z79.01 Long term (current) use of anticoagulants; Z79.899 Other long term (current) drug therapy; Z96.653 Presence of artificial knee joint, bilateral; Z90.89 Acquired absence of other organs; Z90.13 Acquired absence of bilateral breasts and nipples; Z85.3 Personal history of malignant neoplasm of breast; Z98.51 Tubal ligation status; Z90.49 Acquired absence of other specified parts of digestive tract; Z98.890 Other specified postprocedural states
CPT/HCPCS: 28297; 28298; 28308; 36415; 73620; 80053; 81001; 85025; 85610; 85730; C1713; J0690; J2250; J2405; J2704; J3010; J3490; 76000; C1781; J2001